=== PATIENT | female | born 1955 | race Caucasian/White ===

== ENCOUNTER 2017-12-12 11:55 | Outpatient (CLI) | payer BC | END 2017-12-12 11:56 | disposition home or self-care (01) | LOC: BICMAMMO 11:55 | PROVIDERS: ATTEND Family Medicine | DX: Z12.31 Encounter for screening mammogram for malignant neoplasm of breast (principal); R92.1 Mammographic calcification found on diagnostic imaging of breast | CPT/HCPCS: 77063; 77067 ==

== ENCOUNTER 2018-12-13 09:19 | Outpatient (CLI) | payer BC ==
--- NOTE | 2018-12-13 10:26 | MMO ---
Bilateral MAMMO Bilat Screen [facility]. CLINICAL HISTORY: Patient is 63 years old and is seen for screening. The patient has no family history of breast cancer. The patient has no personal history of cancer. The patient has a history of bilateral Breast reduction at age 53. VIEWS: The views performed were: bilateral craniocaudal with tomosynthesis and bilateral mediolateral oblique with tomosynthesis. FILMS COMPARED: The present examination has been compared to a prior imaging study performed at [facility] on 12/12/2017. This study has been interpreted with the assistance of computer-aided detection. MAMMOGRAM FINDINGS: The breasts are heterogeneously dense, which could obscure a lesion on mammography. There are stable benign appearing calcifications seen in both breasts. There are no suspicious masses, suspicious calcifications, or new areas of architectural distortion. IMPRESSION: THERE IS NO MAMMOGRAPHIC EVIDENCE OF MALIGNANCY. A ROUTINE FOLLOW-UP MAMMOGRAM IN 1 YEAR IS RECOMMENDED. THE RESULTS OF THIS EXAM WERE SENT TO THE PATIENT. ACR BI-RADS Category 2 - Benign finding MAMMOGRAPHY NOTE: 1. A negative mammogram report should not delay a biopsy if a dominant of clinically suspicious mass is present. 2. Approximately 10% to 15% of breast cancers are not detected by mammography. 3. Adenosis and dense breasts may obscure an underlying neoplasm. Reported by: HIPOLITO ORTEZ MD Electonically Signed: [id number]
== END 2018-12-13 09:20 | disposition home or self-care (01) ==
LOC: BICMAMMO 09:19
PROVIDERS: ATTEND Student in an Organized Health Care Education/Training Program
DX: Z12.31 Encounter for screening mammogram for malignant neoplasm of breast (principal)
CPT/HCPCS: 77063; 77067

== ENCOUNTER 2019-03-09 08:46 | Outpatient (CLI) | payer BC ==
--- NOTE | 2019-03-09 09:23 | BD ---
EXAM: DEXA bone density examination HISTORY: 63-year-old postmenopausal female for screening COMPARISON: None FINDINGS: L1--bone mineral density 0.742 g/sq cm; T score -2.3 L2--bone mineral density 0.765 g/sq cm; T score -2.4 L3--bone mineral density 0.823 g/sq cm; T score -2.4 L4--bone mineral density 0.745 g/sq cm; T score -2.9 Total L1-L4--bone mineral density 0.769 g/sq cm; T score -2.5 Left femoral neck--bone mineral density0.639; T score -1.9 Total proximal left femur--bone mineral density 0.762; T score -1.5 IMPRESSION: Osteoporosis
== END 2019-03-09 08:47 | disposition home or self-care (01) ==
LOC: BICMAMMO 08:46
PROVIDERS: ATTEND Obstetrics & Gynecology
DX: Z13.820 Encounter for screening for osteoporosis (principal); M81.0 Age-related osteoporosis without current pathological fracture
CPT/HCPCS: 77080

== ENCOUNTER 2019-12-17 12:17 | Outpatient (CLI) | payer BC ==
--- NOTE | 2019-12-17 12:52 | MMO ---
Bilateral MAMMO Bilat Screen [facility]. CLINICAL HISTORY: Patient is 64 years old and is seen for screening. The patient has no family history of breast cancer. The patient has no personal history of cancer. The patient has a history of bilateral Breast reduction at age 53. VIEWS: The views performed were: bilateral craniocaudal with tomosynthesis and bilateral mediolateral oblique with tomosynthesis. FILMS COMPARED: The present examination has been compared to prior imaging studies performed at [facility] on 12/12/2017 and 12/13/2018, and at [facility] on 12/04/2015 and 12/06/2016. This study has been interpreted with the assistance of computer-aided detection. MAMMOGRAM FINDINGS: The breasts are heterogeneously dense, which could obscure a lesion on mammography. There are stable benign appearing calcifications seen in both breasts. There are no suspicious masses, suspicious calcifications, or new areas of architectural distortion. IMPRESSION: THERE IS NO MAMMOGRAPHIC EVIDENCE OF MALIGNANCY. A ROUTINE FOLLOW-UP MAMMOGRAM IN 1 YEAR IS RECOMMENDED. THE RESULTS OF THIS EXAM WERE SENT TO THE PATIENT. ACR BI-RADS Category 2 - Benign finding MAMMOGRAPHY NOTE: 1. A negative mammogram report should not delay a biopsy if a dominant of clinically suspicious mass is present. 2. Approximately 10% to 15% of breast cancers are not detected by mammography. 3. Adenosis and dense breasts may obscure an underlying neoplasm. Reported by: HIPOLITO ORTEZ MD Electonically Signed: [id number]
== END 2019-12-17 12:18 | disposition home or self-care (01) ==
LOC: BICMAMMO 12:17
PROVIDERS: ATTEND Student in an Organized Health Care Education/Training Program
DX: Z12.31 Encounter for screening mammogram for malignant neoplasm of breast (principal); Z98.890 Other specified postprocedural states
CPT/HCPCS: 77063; 77067

== ENCOUNTER 2020-03-12 13:55 | Outpatient (CLI) | payer BC ==
--- NOTE | 2020-03-12 14:27 | RAD ---
EXAM: CHEST TWO VIEWS: 03/12/20 HISTORY: Possible pneumonia, fever and cough. FINDINGS: Heart size is normal. There is some minimal horizontal mostly linear parenchymal changes in the right mid lung zone which could represent a small focus of minimal early pneumonia versus subsegmental ate lectasis. No confluent pneumonia, overt edema, or pleural effusion. IMPRESSION: Minimal mostly horizontal linear and parenchymal changes right mid lung zone, possibly representing a small focus of pneumonia or subsegmental atelectasis. Consider short term follow-up study in 3 to 4 weeks to demonstrate clearing. POS: OFF
== END 2020-03-12 13:56 | disposition home or self-care (01) ==
LOC: BICRAD 13:55
DX: J45.909 Unspecified asthma, uncomplicated (principal); J04.0 Acute laryngitis; R05 Cough
CPT/HCPCS: 71046

== ENCOUNTER 2020-04-08 10:33 | Outpatient (CLI) | payer BC ==
--- NOTE | 2020-04-08 10:59 | RAD ---
EXAM: Chest 2 views: HISTORY: Cough and asthma. Shortness of breath COMPARISON: 03/12/2020 FINDINGS: There is a normal-sized cardiomediastinal silhouette. Increased interstitial lung markings are prese nt. There is no evidence of consolidation, mass, or pleural effusion. No acute osseous abnormality. IMPRESSION: No evidence of acute cardiopulmonary disease
== END 2020-04-08 10:34 | disposition home or self-care (01) ==
LOC: BICRAD 10:33
DX: J45.909 Unspecified asthma, uncomplicated (principal); J18.9 Pneumonia, unspecified organism; R05 Cough
CPT/HCPCS: 71046

== ENCOUNTER 2020-04-14 12:54 | Outpatient (CLI) | payer BC ==
--- NOTE | 2020-04-14 13:41 | CT ---
Exam: High-resolution chest CT HISTORY: Pneumonia wheezing and asthma. Breast reduction TECHNIQUE: High resolution chest CT is performed without contrast. Patient was imaged in the supine a nd prone position. FINDINGS: Mediastinum: Limited evaluation due to technique. No mass, lymphadenopathy or hematoma Normal heart size. Normal caliber aorta Subdiaphragmatic structures do not demonstrate any acute abnormality Trachea and central bronchi are patent No evidence of bronchiectasis. No evidence of significant parenchymal change. No evidence of cystic l esions, significant septal thickening or honeycombing. There is scarring in the middle lobe. No lytic or blastic lesions within the osseous structures IMPRESSION: 1. No evidence of significant interstitial disease with regards to the lung parenchyma.
== END 2020-04-14 12:55 | disposition home or self-care (01) ==
LOC: BICCT 12:54
DX: J18.9 Pneumonia, unspecified organism (principal); J45.909 Unspecified asthma, uncomplicated
CPT/HCPCS: 71250

== ENCOUNTER 2020-06-16 12:13 | Outpatient (CLI) | payer BC | END 2020-06-16 12:14 | disposition home or self-care (01) | LOC: BICRAD 12:13 | PROVIDERS: ATTEND Internal Medicine Critical Care Medicine | DX: R06.00 Dyspnea, unspecified (principal) | CPT/HCPCS: 71046 ==

== ENCOUNTER 2020-12-18 10:12 | Outpatient (CLI) | payer BC | END 2020-12-18 10:13 | disposition home or self-care (01) | LOC: BICMAMMO 10:12 | PROVIDERS: ATTEND Student in an Organized Health Care Education/Training Program | DX: Z12.31 Encounter for screening mammogram for malignant neoplasm of breast (principal); Z98.82 Breast implant status | CPT/HCPCS: 77063; 77067 ==

== ENCOUNTER 2021-12-11 10:20 | Outpatient (CLI) | payer BC | END 2021-12-11 10:21 | disposition home or self-care (01) | LOC: BICRAD 10:20 | PROVIDERS: ATTEND Nurse Practitioner Family | DX: J06.9 Acute upper respiratory infection, unspecified (principal); J45.909 Unspecified asthma, uncomplicated; R06.02 Shortness of breath; R05.9 Cough, unspecified | CPT/HCPCS: 71046 ==

== ENCOUNTER 2021-12-29 08:43 | Outpatient (CLI) | payer BC | END 2021-12-29 08:44 | disposition home or self-care (01) | LOC: BICMAMMO 08:43 | PROVIDERS: ATTEND Advanced Practice Midwife | DX: R92.2 Inconclusive mammogram (principal) | CPT/HCPCS: G0279 ==

== ENCOUNTER 2022-11-02 08:25 | Outpatient (CLI) | payer BC | END 2022-11-02 08:26 | disposition home or self-care (01) | LOC: BICMAMMO 08:25 | PROVIDERS: ATTEND Obstetrics & Gynecology | DX: N64.4 Mastodynia (principal) | CPT/HCPCS: 77066; G0279 ==

== ENCOUNTER 2024-09-07 13:41 | Outpatient (CLI) | payer BC | END 2024-09-07 13:42 | disposition home or self-care (01) | LOC: BICMAMMO 13:41 | PROVIDERS: ATTEND Student in an Organized Health Care Education/Training Program | DX: Z13.820 Encounter for screening for osteoporosis (principal); M85.89 Other specified disorders of bone density and structure, multiple sites | CPT/HCPCS: 77080 ==

== ENCOUNTER 2024-11-19 12:27 | Outpatient (CLI) | payer BC | END 2024-11-19 12:28 | disposition home or self-care (01) | LOC: BICMAMMO 12:27 | PROVIDERS: ATTEND Student in an Organized Health Care Education/Training Program | DX: Z12.31 Encounter for screening mammogram for malignant neoplasm of breast (principal); Z98.890 Other specified postprocedural states | CPT/HCPCS: 77063; 77067 ==